=== PATIENT | female | born 1955 | race Caucasian/White ===

== ENCOUNTER 2019-08-21 23:05 | Emergency (ER) | payer BC ==
--- NOTE | 2019-08-21 23:11 | PDOC ---
Rapid Medical Evaluation Chief Complaint: Nausea/Vomiting Time Seen by Provider: 08/21/19 23:08 Medical Evaluation: 08/21/19 23:08 64 year old female c/o dizziness, vomited 1x, denies chest pain, weakness,headache. PMHX: hypertension A: dizziness P; labs ekg 08/21/19 23:10 Discharge Disposition - Diagnosis Dizziness and giddiness - Referrals - Patient Instructions - Post Discharge Activity
[2019-08-21 23:12] VITALS: TEMP 98; BMI 27.1
[2019-08-21] MEDS ORDERED: METOCLOPRAMIDE HCL INJECTION 10 MG/2 ML VIAL IVPB ONE (23:12)
[2019-08-21] MEDS ORDERED: SODIUM CHLORIDE 1,000 ML IV STA (23:13)
--- NOTE | 2019-08-21 23:16 | PDOC ---
History of Present Illness - General Chief Complaint: CVA/TIA Stated Complaint: VOMITTING/NAUSEA Time Seen by Provider: 08/21/19 23:08 History Source: Patient - History of Present Illness Initial Comments: 08/21/19 23:14 64 year old female with PMHX of hypertension complaining of dizziness Past History - Medical History Allergies/Adverse Reactions: Allergies Allergy/AdvReac Type Severity Reaction Status Date / Time No Known Allergies Allergy Verified 08/21/19 23:11 COPD: No HTN: Yes - Immunization History Td Vaccination: Yes Immunization Up to Date: Yes - Psycho-Social/Smoking History Smoking History: Never smoked *Physical Exam - Vital Signs Last Vital Signs Temp Pulse Resp BP Pulse Ox 98 F 67 18 128/67 100 08/21/19 23:07 08/21/19 23:07 08/21/19 23:07 08/21/19 23:07 08/21/19 23:07 Discharge - Discharge Information Clinical Impression/Diagnosis: Dizziness and giddiness - Follow up/Referral - Patient Discharge Instructions - Post Discharge Activity
--- NOTE | 2019-08-21 23:31 | PDOC ---
History of Present Illness - General Chief Complaint: Lightheaded Stated Complaint: VOMITTING/NAUSEA Time Seen by Provider: 08/21/19 23:08 History Source: Patient - History of Present Illness Initial Comments: 08/22/19 00:45 64-year-old female complain of dizziness with one episode of vomiting at home pr ior to arrival. Patient was brought in by ambulance for evaluation. Patient denies headache, chest pain, weakness, numbness. Denies recent cold or URIs. Past medical history of hypertension Past History - Medical History Allergies/Adverse Reactions: Allergies Allergy/AdvReac Type Severity Reaction Status Date / Time No Known Allergies Allergy Verified 08/21/19 23:11 Home Medications: Ambulatory Orders Meclizine HCl [Antivert -] 25 mg PO TID PRN #14 tablet 08/22/19 Ondansetron [Zofran *Odt*] 4 mg SL TID PRN #7 od.tablet 08/22/19 COPD: No HTN: Yes - Immunization History Td Vaccination: Yes Immunization Up to Date: Yes - Psycho-Social/Smoking History Smoking History: Never smoked Review of Systems - Review of Systems Able to Perform ROS?: Yes Is the patient limited [place] proficient: No Constitutional: No: Symptoms Reported, See HPI, Chills, Diaphoresis, Fever, Loss of Appetite, Malaise, Night Sweats, Weakness, Weight Stable, Unintentional Wgt. Loss, Unexplained wgt Loss, Other Respiratory: No: Symptoms reported, See HPI, Cough, Orthopnea, Shortness of Breath, SOB with Exertion, SOB at Rest, Stridor, Wheezing, Productive cough, Hemoptysis, Other Cardiac (ROS): No: Symptoms Reported, See HPI, Chest Pain, Edema, Irregular Heart Rate, Lightheadedness, Palpitations, Syncope, Chest Tightness, Other ABD/GI: No: Symptoms Reported, See HPI, Abdominal Distended, Abd. Pain w/ defecation, Blood Streaked Bowels, Constipated, Diarrhea, Difficulty Swallowing, Nausea, Poor Appetite, Poor Fluid Intake, Rectal Bleeding, Vomiting, Indig estion, Abdominal cramping, Tarry Stools, Other Neurological: Yes: Dizziness. No: Symptoms reported, See HPI, Headache, Numbness, Paresthesia, Pre-Existing Deficit, Seizure, Tingling, Tremors, Weakness, Unsteady Gait, Ataxia, Other *Physical Exam - Vital Signs Last Vital Signs Temp Pulse Resp BP Pulse Ox 98 F 67 18 128/67 100 08/21/19 23:07 08/21/19 23:07 08/21/19 23:07 08/21/19 23:07 08/21/19 23:07 - Physical Exam General Appearance: Yes: Appropriately Dressed HEENT: positive: Normal ENT Inspection, Other (+ [place], no nystagmus) Respiratory/Chest: positive: Lungs Clear, Normal Breath Sounds Cardiovascular: positive: Regular Rhythm, Regular Rate Extremity: positive: Normal Capillary Refill, Normal Inspection Integumentary: positive: Normal Color, Dry, Warm 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 NML intact, Fully Oriented, Alert, Normal Mood/Affect, Normal Response, Motor Strength 5/5 Heart Score/ECG Review - History History: Slightly suspicious - Electrocardiogram EKG: Normal - Age Age: 45-65 - Risk Factors Risk Factors Heart Score: Yes Hx Hypertension Based on the list above the patient has:: 1-2 risk factors - Troponin Troponin: </= normal limit - Score Heart Score - Total: 2 - ECG Intrepretation Rhythm: Regular Rhythm Comment:: 08/22/19 02:02 NSR ED Treatment Course - LABORATORY CBC & Chemistry Diagram: 08/21/19 00:03 08/21/19 00:03 Medical Decision Making - Medical Decision Making 08/22/19 01:15 CT head : There is no acute intraparenchymal hemorrhage. There is no intra or extra-axial collection. No mass effect or midline shift. No evidence for major vessel acute territorial infarction. Johnson-white matter differentiation is maintained. The ventricles are normal in size and position for patient's age. The paranasal sinuses and mastoid air cells are unopacified. Visualized orbits are unremarkable. Calvarium and soft tissues are unremarkable. 08/22/19 01:21 patient reports slight improvement in dizziness. has nausea. will give zofran 08/22/19 02:13 patient is currently PO challenging,. will reevaluate 08/22/19 02:22 tolerating PO. patient has some dizziness with position changes,. Discharge - Discharge Information Problems reviewed: Yes Clinical Impression/Diagnosis: Dizziness and giddiness Disposition: HOME - Additional Discharge Information Prescriptions: Meclizine HCl [Antivert -] 25 mg PO TID PRN #14 tablet PRN Reason: Vertigo Ondansetron [Zofran *Odt*] 4 mg SL TID PRN #7 od.tablet PRN Reason: Nausea And/Or Vomiting - Follow up/Referral Referrals: Jose Ruiz [Primary Care Provider] - Call tomorrow - Patient Discharge Instructions Patient Printed Discharge Instructions: DI for Vomiting -- Adult Additional Instructions: Drink plenty of fluids. Your potassium level was slightly low. Increase potassium in diet. Also this should be repeated with your primary care physician. Take meclizine as needed for dizziness as prescribed. take zofran odt as prescribed for nausea/ vomiting Return to the emergency room for any worsening symptoms - Post Discharge Activity
[2019-08-21] MEDS ORDERED: MECLIZINE HCL 25 MG TABLET (FP) PO ONE (23:35)
--- NOTE | 2019-08-21 23:48 | PDOC ---
*Physical Exam - Vital Signs Last Vital Signs Temp Pulse Resp BP Pulse Ox 98 F 67 18 128/67 100 08/21/19 23:07 08/21/19 23:07 08/21/19 23:07 08/21/19 23:07 08/21/19 23:07 ED Treatment Course - LABORATORY CBC & Chemistry Diagram: 08/21/19 00:03 08/21/19 00:03 Medical Decision Making - Medical Decision Making 08/21/19 23:48 Patient seen by the advanced practice provider under my supervision. Ancillary testing reviewed as necessary. I agree with plan as outlined by the advanced practice provider. Discharge - Discharge Information Problems reviewed: Yes Clinical Impression/Diagnosis: Dizziness and giddiness Disposition: HOME - Additional Discharge Information Prescriptions: Meclizine HCl [Antivert -] 25 mg PO TID PRN #14 tablet PRN Reason: Vertigo Ondansetron [Zofran *Odt*] 4 mg SL TID PRN #7 od.tablet PRN Reason: Nausea And/Or Vomiting - Follow up/Referral Referrals: Jose Ruiz [Primary Care Provider] - Call tomorrow - Patient Discharge Instructions Patient Printed Discharge Instructions: DI for Vomiting -- Adult Additional Instructions: Drink plenty of fluids. Your potassium level was slightly low. Increase potassium in diet. Also this should be repeated with your primary care physician. Take meclizine as needed for dizziness as prescribed. take zofran odt as prescribed for nausea/ vomiting Return to the emergency room for any worsening symptoms - Post Discharge Activity
[2019-08-22] MEDS ORDERED: MECLIZINE HCL 25 MG TABLET (FP) ONE (00:09)
[2019-08-22] MEDS ORDERED: METOCLOPRAMIDE HCL INJECTION 10 MG/2 ML VIAL ONE (00:09)
[2019-08-22 00:15] LABS: BASO % 0.6 % (0-2.0); EOS % 0.6 % (0-4.5); HEMATOCRIT 39.9 % (32.4-45.2); HEMOGLOBIN 13.5 GM/dL (10.7-15.3); LYMPH % 15.6 % (8-40); MCH 28.3 pg (25.7-33.7); MCHC 33.8 g/dl (32.0-36.0); MEAN CELL VOLUME 83.7 fl (80-96); MEAN PLT VOLUME 9.2 fl (7.5-11.1); MONO % 4.5 % (3.8-10.2); NEUT % 78.7 % (42.8-82.8); PLATELET COUNT 255 K/MM3 (134-434); RBC 4.77 M/mm3 (3.60-5.2); WHITE BLOOD COUNT 10.7 K/mm3 (4.0-10.0)
[2019-08-22 00:52] LABS: ALBUMIN 3.8 g/dl (3.4-5.0); ALK PHOS 103 U/L (45-117); ANION GAP 9 MMOL/L (8-16); BILIRUBIN,TOTAL 0.5 mg/dL (0.2-1); BLOOD UREA NITROGEN 26.5 mg/dL (7-18); CALCIUM 9.1 mg/dL (8.5-10.1); CHLORIDE 100 mmol/L (98-107); CO2 29 mmol/L (21-32); CREATININE 1.4 mg/dL (0.55-1.3); GLUCOSE,RANDOM 181 mg/dL (74-106); POTASSIUM 3.2 mmol/L (3.5-5.1); SGOT/AST 13 U/L (15-37); SGPT/ALT 18 U/L (13-61); SODIUM 137 mmol/L (136-145); TOT PROT 7.3 g/dl (6.4-8.2)
[2019-08-22] MEDS ORDERED: ONDANSETRON 4 MG/2 ML VIAL IVPB ONE (01:18)
[2019-08-22 02:41] VITALS: BP 119/68; PULSE 79
--- NOTE | 2019-08-22 10:36 | EKG ---
Test Reason : Blood Pressure : / mmHG Vent. Rate : 068 BPM Atrial Rate : 068 BPM P-R Int : 138 ms QRS Dur : 082 ms QT Int : 452 ms P-R-T Axes : 060 020 018 degrees QTc Int : 480 ms POOR DATA QUALITY, INTERPRETATION MAY BE ADVERSELY AFFECTED NORMAL SINUS RHYTHM NORMAL ECG NO PREVIOUS ECGS AVAILABLE Confirmed by Karri Garcia MD ([id number]) on 08/22/2019 10:36:12 AM Referred By: Confirmed By:Karri Garcia MD
== END 2019-08-22 03:15 | disposition home or self-care (01) ==
LOC: JER 23:05
PROC: 3E033NZ Introduction of Analgesics, Hypnotics, Sedatives into Peripheral Vein, Percutaneous Approach (ICD-10-PCS; principal; 2019-08-21)
PROC: 3E0337Z Introduction of Electrolytic and Water Balance Substance into Peripheral Vein, Percutaneous Approach (ICD-10-PCS; 2019-08-21)
DX: R42 Dizziness and giddiness (principal)
CPT/HCPCS: 36415; 70450-TC; 80053; 84484; 85025; 93005; 93010; 99285-25